=== PATIENT | female | born 1980 | race Caucasian/White ===

== ENCOUNTER 2018-04-05 13:28 | Day surgery (SDC) | payer OTHER ==
[~2018-04-05] VITALS: Ht 162.6 cm; Wt 66.7 kg
[~2018-04-05 13:28] MED LIST: METH40TA3 PO; TEMA15CA PO
[2018-04-05] MEDS ORDERED: BUPIVACAINE 0.25% ONE (14:32)
[2018-04-05 14:36] VITALS: BP 119/84
[2018-04-05] MEDS ORDERED: LACTATED RINGERS 1,000 ML IV SCH (14:40)
[2018-04-05 14:56] LABS: HCG UR SG 1.004 (1.003-1.030)
[2018-04-05] MEDS ORDERED: GABAPENTIN 300 MG CAPSULE PO ONE (15:00)
[2018-04-05] MEDS ORDERED: ACETAMINOPHEN 500 MG TABLET PO ONE (15:00)
[2018-04-05] MEDS ORDERED: MIDAZOLAM 1 MG/ML, 2ML ONE (15:04)
[2018-04-05] MEDS ORDERED: FENTANYL PF 250 MCG/5ML ONE (15:04)
[2018-04-05] MEDS ORDERED: KETOROLAC 30 MG/1 ML ONE (15:30)
[2018-04-05] MEDS ORDERED: DEXAMETHASONE 4 MG/ML, 1ML ONE (15:57)
[2018-04-05] MEDS ORDERED: ROCURONIUM 10MG/ML,5ML ONE (15:57)
[2018-04-05] MEDS ORDERED: GLYCOPYRROLATE 0.2MG/1ML, 5ML ONE (15:57)
[2018-04-05] MEDS ORDERED: NEOSTIGMINE 1 MG/ML, 10ML ONE (15:57)
[2018-04-05] MEDS ORDERED: ONDANSETRON 2MG/ML, 2ML ONE (15:57)
[2018-04-05] MEDS ORDERED: PROPOFOL 10 MG/ML, 20ML ONE (15:57)
[2018-04-05] MEDS ORDERED: MEPERIDINE/PF 25MG/0.5ML IVPush PRN (16:00)
[2018-04-05] MEDS ORDERED: ONDANSETRON 2MG/ML, 2ML IV PRN (16:00)
[2018-04-05] MEDS ORDERED: SCOPOLAMINE PATCH, 1.5MG PATCH.TD72 TD PRN (16:00)
[2018-04-05] MEDS ORDERED: PROMETHAZINE 25 MG/ML, 1ML IV PRN (16:00)
[2018-04-05] MEDS ORDERED: ALBUTEROL/IPRATROPIUM 2.5MG/0.5MG, 3 ML NPPB PRN (16:00)
[2018-04-05] MEDS ORDERED: OXYcodone 5 MG/5 ML ORAL.SOL UDC PO PRN (16:00)
[2018-04-05] MEDS ORDERED: LABETALOL 5MG/ML, 20ML IV PRN (16:00)
[2018-04-05] MEDS ORDERED: MIDAZOLAM 1 MG/ML, 2ML IV PRN (16:00)
[2018-04-05] MEDS ORDERED: OXYcodone 5 MG/5 ML ORAL.SOL UDC ONE (16:23)
[2018-04-05] MEDS ORDERED: FENTANYL PF 100 MCG/2ML ONE (16:23)
[2018-04-05] MEDS: FENTANYL PF 100 MCG/2ML IV PRN ×2 (16:26→16:36)
[2018-04-05] MEDS ORDERED: HYDROmorphone 2 MG/ML, 1ML ONE (16:38)
[2018-04-05] MEDS: HYDROmorphone 1 MG/ML, 1ML IV PRN ×4 (16:40→17:10)
== END 2018-04-05 18:05 | disposition home or self-care (01) ==
LOC: OR 13:28
PROVIDERS: ATTEND Obstetrics & Gynecology
DX: R10.2 Pelvic and perineal pain (principal); G89.29 Other chronic pain; I25.10 Atherosclerotic heart disease of native coronary artery without angina pectoris; Z98.890 Other specified postprocedural states; Z79.899 Other long term (current) drug therapy; Z88.1 Allergy status to other antibiotic agents; Z88.5 Allergy status to narcotic agent; Z88.8 Allergy status to other drugs, medicaments and biological substances; Z87.891 Personal history of nicotine dependence
CPT/HCPCS: 36415; 49320; 81025; 86850; 86900; J1100; J1170; J1885; J2250; J2405; J2704; J2710; J3010; J3490; J7120

== ENCOUNTER 2018-07-05 05:48 | Day surgery (SDC) | payer OTHER ==
[~2018-07-05] VITALS: Ht 162.6 cm; Wt 67.0 kg
[2018-07-05] MEDS ORDERED: LACTATED RINGERS 1,000 ML IV SCH (06:10)
[2018-07-05 06:26] VITALS: BP 111/75
[2018-07-05] MEDS ORDERED: BUPIVACAINE/PF-EPI 0.25% 1:200K ONE (06:28)
[2018-07-05] MEDS ORDERED: FLUORESCEIN SODIUM 500 MG/5 ML ONE (06:28)
[2018-07-05 06:52] LABS: MICROSCOPIC INDICATED
[2018-07-05] MEDS ORDERED: GABAPENTIN 300 MG CAPSULE PO ONE (07:00)
[2018-07-05] MEDS ORDERED: ONDANSETRON ODT 8 MG PO ONE (07:00)
[2018-07-05] MEDS ORDERED: SCOPOLAMINE PATCH, 1.5MG PATCH.TD72 TD ONE (07:00)
[2018-07-05] MEDS ORDERED: ACETAMINOPHEN 500 MG TABLET PO ONE (07:00)
[2018-07-05 07:03] LABS: CULTURE INDICATED? NO
[2018-07-05] MEDS ORDERED: KETAMINE 50 MG/ML, 10ML ONE (07:08)
[2018-07-05] MEDS ORDERED: HYDROmorphone 2 MG/ML, 1ML ONE ×3 (07:09→10:23)
[2018-07-05] MEDS ORDERED: MIDAZOLAM 1 MG/ML, 5ML ONE (07:13)
[2018-07-05] MEDS ORDERED: FENTANYL PF 250 MCG/5ML ONE (07:13)
[2018-07-05] MEDS ORDERED: HALOPERIDOL 5 MG/ML IV PRN (08:00)
[2018-07-05] MEDS ORDERED: ALBUTEROL/IPRATROPIUM 2.5MG/0.5MG, 3 ML NPPB PRN (08:00)
[2018-07-05] MEDS ORDERED: OXYcodone 5 MG/5 ML ORAL.SOL UDC PO PRN (08:00)
[2018-07-05] MEDS ORDERED: PROMETHAZINE 25 MG SUPP PR PRN (08:00)
[2018-07-05] MEDS ORDERED: ONDANSETRON 2MG/ML, 2ML IV PRN (08:00)
[2018-07-05] MEDS ORDERED: MIDAZOLAM 1 MG/ML, 2ML IV PRN (08:00)
[2018-07-05] MEDS ORDERED: MEPERIDINE/PF 25MG/0.5ML IVPush PRN (08:00)
[2018-07-05] MEDS ORDERED: hydrALAzine 20 MG/ML, 1ML IV PRN (08:00)
[2018-07-05] MEDS ORDERED: DIAZEPAM 5 MG/ML, 2ML IVPush PRN (08:00)
[2018-07-05] MEDS ORDERED: LABETALOL 5MG/ML, 20ML IV PRN (08:00)
[2018-07-05] MEDS ORDERED: LIDOCAINE-MPF 2% ,5ML ONE ×2 (08:04)
[2018-07-05] MEDS ORDERED: PROPOFOL 10 MG/ML, 20ML ONE (08:05)
[2018-07-05] MEDS ORDERED: KETOROLAC 30 MG/1 ML ONE (08:05)
[2018-07-05] MEDS ORDERED: GLYCOPYRROLATE 0.2MG/1ML, 5ML ONE (08:05)
[2018-07-05] MEDS ORDERED: CEFAZOLIN 1,000 MG ONE (08:05)
[2018-07-05] MEDS ORDERED: ROCURONIUM 10MG/ML,5ML ONE (08:05)
[2018-07-05] MEDS ORDERED: DEXAMETHASONE 4 MG/ML, 1ML ONE (08:05)
[2018-07-05] MEDS ORDERED: NEOSTIGMINE 1 MG/ML, 10ML ONE (08:05)
[2018-07-05 08:38] LABS: BASOPHILS # (AUTO) 0.06 x10^3/uL (0-0.1); BASOPHILS % (AUTO) 1 % (0-1); EOSINOPHILS % (AUTO) 1 % (1-7); LYMPHOCYTES # (AUTO) 2.49 x10^3/uL (1-3.4); LYMPHOCYTES % (AUTO) 27 % (22-44); MD NO; MEAN CORPUSCULAR HEMOGLOBIN 31.9 pg (27.0-34.8); MEAN CORPUSCULAR HGB CONC 34.6 g/dL (32.4-35.8); MEAN CORPUSCULAR VOLUME 92.2 fL (80-100); MEAN PLATELET VOLUME 8.7 fL (7.4-10.4); MONOCYTES # (AUTO) 0.37 x10^3/uL (0.2-0.8); MONOCYTES % (AUTO) 4 % (2-9); NEUTROPHILS # (AUTO) 6.08 x10^3/uL (1.8-6.8); NEUTROPHILS % (AUTO) 67 % (42-75); PLATELET COUNT 314 x10^3/uL (130-400); RED BLOOD COUNT 5.14 x10^6/uL (3.82-5.3); RED CELL DISTRIBUTION WIDTH 12.4 % (9.6-15.2)
[2018-07-05 08:40] LABS: ALANINE AMINOTRANSFERASE 21 U/L (12-78); ALBUMIN 4.6 g/dL (3.4-5.0); ANION GAP 7 mmol/L (5-15); CALCIUM 9.7 mg/dL (8.5-10.1); CHLORIDE 107 mmol/L (98-107)
[2018-07-05 08:42] LABS: ALKALINE PHOSPHATASE 57 U/L (45-117); BILIRUBIN,TOTAL 0.5 mg/dL (0.2-1.0); TOTAL PROTEIN 8.2 g/dL (6.4-8.2)
[2018-07-05] MEDS ORDERED: FENTANYL PF 100 MCG/2ML ONE ×2 (09:22→10:23)
[2018-07-05] MEDS: FENTANYL PF 100 MCG/2ML IV PRN ×4 (09:40→10:35)
[2018-07-05] MEDS ORDERED: OXYcodone 5 MG/5 ML ORAL.SOL UDC ONE (09:42)
[2018-07-05] MEDS: HYDROmorphone 1 MG/ML, 1ML IV PRN ×8 (09:45→11:00)
[2018-07-05] MEDS ORDERED: MIDAZOLAM 1 MG/ML, 2ML ONE (10:24)
== END 2018-07-05 13:05 | disposition home or self-care (01) ==
LOC: OUT 05:48
PROVIDERS: ATTEND Obstetrics & Gynecology
DX: N85.8 Other specified noninflammatory disorders of uterus (principal); N83.8 Other noninflammatory disorders of ovary, fallopian tube and broad ligament; I25.10 Atherosclerotic heart disease of native coronary artery without angina pectoris; Z98.890 Other specified postprocedural states; Z88.1 Allergy status to other antibiotic agents; Z87.891 Personal history of nicotine dependence; Z88.5 Allergy status to narcotic agent; Z88.8 Allergy status to other drugs, medicaments and biological substances; Z79.899 Other long term (current) drug therapy
CPT/HCPCS: 36415; 58552; 80053; 81001; 81025; 85025; 86850; 86900; 88307; J0690; J1100; J1170; J1885; J2250; J2704; J2710; J3010; J3490; J7120; Q0162; S2900